=== PATIENT | male | born 1980 | race Caucasian/White ===

== ENCOUNTER 2025-10-02 19:09 | Emergency (ER) | payer OTHER, SELFPAY ==
[2025-10-02 19:10] VITALS: BMI 46.1
[2025-10-02 19:28] VITALS: BP 184/103; BP 194/116; PULSE 61; RESP 20; TEMP 36.9; O2SAT 98
--- NOTE | 2025-10-02 19:45 | XR_ITS ---
Examination: Foot, left, 3 views Technique: AP, oblique, lateral views foot, 3 views Date and time of exam: October 02, 2025, 1950 hours INDICATIONS: Laceration to the left foot today, foot pain. FINDINGS: No acute fracture No dislocation No foreign body Mild narrowing first metatarsophalangeal joint Large plantar bony calcaneal spur IMPRESSION: No opaque foreign body
--- NOTE | 2025-10-02 19:45 | XR_ITS ---
EXAMINATION: Left ankle 3 views TECHNIQUE: AP lateral left ankle 2 views Date and time: October 02, 2025, 1955 hours INDICATIONS: Twisting injury to the ankle today, ankle pain. FINDINGS: Lateral malleolar medial malleolar soft tissue swelling No acute fracture Large plantar bony calcaneal spur IMPRESSION: No acute fracture
--- NOTE | 2025-10-02 19:49 | EDNOTE_ITS ---
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 Patient also endorses that he twisted his left ankle about a month ago and it feels a bit better and he is able to walk on it however still irritates a little bit. Denies any numbness, tingling, weakness, chest pain, shortness of breath dizziness, headache. Related Data Home Medications ?Medication ?Instructions ?Recorded ?Confirmed NO HOME MEDS ##0 06/18/08 ciprofloxacin HCl 500 mg tablet 500 mg PO BID ##0 01/17 Previous Rx's ?Medication ?Instructions ?Recorded cephalexin 500 mg capsule 500 mg PO QID 7 days #28 cap s 10/02/25 Allergies Allergy/AdvReac Type Severity Reaction Status Date / Time No Known Allergies Allergy Verified 05/23/21 15:10 ED Exam Narrative Physical exam: Constitutional: Vital Signs Reviewed. Well appearing. No acute distress. Not toxic appearing. Head: Normocephalic, atraumatic. Eyes: Conjunctiva clear. ENT: Mucous membranes moist. Neck: Trachea midline. Normal range of motion. No nuchal rigidity. Respiratory: Normal effort. No respiratory distress or accessory muscle use. Neuro: Alert and oriented. Speech normal. No focal gross motor or sensory deficits observed. Skin: Warm, dry, normal color. Psych: Pleasant. Normal affect. Cooperative. Left lower extremity: The interdigital webspace of the 4th and 5th digits there is a laceration which was explored to base without deep structure involvement or foreign body. Patient with hammertoes noted throughout his left foot. Full range of motion, strength 5 out of 5, sensation tact light touch for left foot, ankle, and toes. Positive tenderness to palpation to left lateral malleolus with mild edema. Dorsalis pedis pulse 2+ regular rate and rhythm for left leg cap refill remains less than 2 seconds for left fourth digits. Course Quality Measures none Orders Category Date Time Status Set Up Suture Tray STAT Care 10/02/25 19:45 Completed splint [Splint / Immobilizer] STAT Care 10/02/25 22:00 Completed XR ankle LT 2V Stat Exams 10/02/25 19:45 Completed XR foot comp LT min 3V Stat Exams 10/02/25 19:45 Completed HYDROcodone/APAP 10/325 [Sanders 10/325] Med 10/02/25 19:51 Discontinued 1 tab PO X1 ONE Lidocaine 1% 20 ml [Xylocaine 1% 20 ML] Med 10/02/25 19:45 Discontinued 10 ml INFL X1 ONE TET,DIP/PERT AC (Adult)-Tdap [Boostrix Adult (Tdap) Med 10/02/25 19:45 Discontinued Vacc] 0.5 ml IMI .ONCE ONE cephALEXin [Keflex] Med 10/02/25 22:30 Discontinued 500 mg PO X1 ONE Vital Signs Vital signs: Vital Signs Temperature 98.5 F 10/02/25 19:28 Pulse Rate 61 10/02/25 19:28 Respiratory Rate 20 10/02/25 19:28 Blood Pressure 194/116 H 10/02/25 19:28 Pulse Oximetry (%) 98 10/02/25 19:28 Oxygen Delivery Method Room Air 10/02/25 19:28 PROCEDURES: Laceration Laceration 1: Site: lower extremity Side (If applicable): left (Interdigital space between 4th and 5th digits) Size (cm): 3 Description: linear Depth: simple, single layer Local Anesthetic: lidocaine 1% Amount of anesthesia used (mL): 4 Pre-repair: wound explored, irrigated extensively and deep structures intact Skin layer closed with: nylon Suture size (cm): 4-0 Number of sutures: 3 Technique: simple, interrupted Extremity Injury, Lower MDM Narrative MDM Narrative:: Concern for laceration and subacute ankle sprain additionally cannot exclude acute foot sprain Wound explored to base without tendon injury, FB tdap update prn, wound thoroughly irrigated, wound well approximated Left 4th and 5th toes and ankle remains DNVI with soft compartments X-ray without gross fracture or dislocation or foreign body Advised wound care edu, inevitable scar formation, prophylactic antibiotics, need to return without fail for suture removal, RICE therapy, CAM Walker boot, judit tape for 4th and 5th digits, follow-up with PMD in 2 days, return to the ER in 8 to 10 days for suture removal. Although this patient's blood pressure was out of the normal range on evaluation today, the patient does not have clinical evidence of acute end-organ injury. The patient has been counseled on the risks of poorly or uncontrolled blood pres sure and advised of the importance of close follow-up within the next 3-4 days to confirm that this blood pressure elevation is the result of a chronic hypertensive condition and to have it treated if so. The patient has also been counseled to return immediately if any further symptoms develop. Patient data External records reviewed:: [facility] previous records Clinical information provided by:: patient Social determinants that could affect healthcare access:: none Patient has the following chronic illnesses:: As noted How is presenting disease/condition affected by chronic disease/condition?: no chronic disease Evaluation data The following diagnostics were reviewed and interpreted by me:: other (specify) Lab and/or radiology exams considered but not ordered:: Additional Labs and radiology considered, but not ordered as they were not clinically indicated at this time. Interpretation Summary: None Medications / Prescriptions Medications or Prescriptions considered but not ordered:: I considered prescription management (both outpatient prescriptions AND drug treatment in the ER) and decided that this was necessary and was prescribed as charted. Medication administrations:: Medication Administration History Discontinued Medications Hydrocodone Bitart/Acetaminophen (Hydrocodone/Apap 10/325 Tab) 1 tab PO X1 ONE Stop: 10/02/25 19:52 Last Admin: 10/02/25 20:07 Dose: 1 tab Documented By: Cephalexin HCl (Cephalexin 250 Mg Capsule) 500 mg PO X1 ONE Stop: 10/02/25 22:31 Last Admin: 10/02/25 23:04 Dose: 500 mg Documented By: SF Diphtheria/Tetanus/Acell Pertussis (Diphth,Pertuss(Acell),Tet Vac 0.5 Ml Syr- Adult) 0.5 ml IMi .ONCE ONE Stop: 10/02/25 19:46 Last Admin: 10/02/25 20:09 Dose: 0.5 ml Documented By: Lidocaine HCl (Lidocaine Hcl 1% 20 Ml Vial) 10 ml INFL X1 ONE Stop: 10/02/25 19:46 Last Admin: 10/02/25 20:11 Dose: 10 ml Documented By: As noted Consultations Consultation(s) initiated? (list below): No Diagnosis Most likely diagnosis given after review of the tests above:: Laceration to 4th and 5th digits as well as subacute ankle sprain Admission Indicated Admission indicated?: not indicated Admission Request Was there a request for admission?: No Disposition Plan Disposition Plan: Discharge Discharge Attestation Discharge Attestation: The patient and all family members were given an opportunity to ask questions and understood the discharge instructions. Discharge instructions specifically effects, indications for sooner follow up or return to the emergency department, and the expected course of current diagnosis. Patient condition: Stable Discharge Plan Plan Patient Disposition: HOME (Self Care) Patient condition on transfer: Stable Prescriptions/Referrals Prescriptions/Med Rec: New cephalexin 500 mg capsule 500 mg PO QID 7 Days Qty: 28 0RF No Action NO HOME MEDS Qty: 0 ciprofloxacin HCl 500 MG tablet 500 mg PO BID Qty: 0 Referrals: No Primary/Family,Physician [Primary Care Provider] - In 1 week Problem List Clinical Impression: Ankle sprain and strain, Laceration of foot Patient/Caregiver Discharge Instructions Education Materials: ED High Blood Pressure ..., ED Laceration, Foot: All Closures, ED Toe Sprain, ED Ankle Sprain (Adult) Additional Instructions: Follow up with your primary medical doctor within 48 hours. Return to the Emergency Room immediately for any new, worsening, continuing symptoms or any concerns at all. Return to the Emergency Room within 48 hours if you are unable to follow up with your primary medical doctor within 48 hours. Return to the ER in 8 to 10 days for suture removal. Print Language: Latvian Stand Alone Forms: Olga Award Info., Patient Portal Info Letter YAMILETH/SARAH BETH Supervising Physician YAMILETH/SARAH BETH Supervising Physician: Dr. Wong
[2025-10-02] MEDS: DIPHTH,PERTUSS(ACELL),TET VAC 0.5 ML SYR- ADULT IMi (20:09)
[2025-10-02] MEDS: LIDOCAINE HCL 1% 20 ML VIAL 10 ML INFL (20:11)
[2025-10-02 22:40] VITALS: BP 153/90; PULSE 61; RESP 18; TEMP 36.8; O2SAT 95
== END 2025-10-02 23:31 | disposition home or self-care (01) ==
PROVIDERS: Emergency Provider Family Medicine
DX: S91.312A Laceration without foreign body, left foot, initial encounter (principal); S93.402A Sprain of unspecified ligament of left ankle, initial encounter; S96.912A Strain of unspecified muscle and tendon at ankle and foot level, left foot, initial encounter; X50.1XXA Overexertion from prolonged static or awkward postures, initial encounter; Z23 Encounter for immunization
CPT/HCPCS: 12002; 73600; 73630; 90471; 90715; 99283; J3490; A9270

== ENCOUNTER → 2025-10-09 | Outpatient (CLI) | payer BC, SELFPAY ==
[2025-10-09 07:47] LABS: Collection Type, Urine Clean Catch
[2025-10-09 08:34] LABS: Basophils # (Auto) 0.1 Thou/mm3 (0.0-0.2); Basophils % (Auto) 1 % (0-2.5); Eosinophils # (Auto) 0.2 Thou/mm3 (0.0-0.5); Eosinophils % (Auto) 3 % (0-10); Hematocrit 46.7 % (41.0-53.0); Hemoglobin 15.8 g/dL (13.5-16.0); Immature Granulocytes Auto 0.02 Thou/mm3 (0.00-0.00); Lymphocytes # (Auto) 1.9 Thou/mm3 (1.0-4.8); Lymphocytes % (Auto) 28 % (10-50); Mean Corpuscular HGB Conc 33.8 g/dl (31.0-37.0); Mean Corpuscular Hemoglobin 30.3 pg (25.0-35.0); Mean Corpuscular Volume 90 fL (80-100); Monocytes # (Auto) 0.5 Thou/mm3 (0.0-0.8); Monocytes % (Auto) 8 % (0-12); Neutrophils # (Auto) 4.1 Thou/mm3 (1.8-7.7); Neutrophils % (Auto) 60 % (37-80); Nucleated Red Blood Cell # 0.00 Thou/mm3 (0.00-0.00); Nucleated Red Blood Cell % 0 /100 WBC (0); Platelet Count 240 Thou/mm3 (140-440); RDW Standard Deviation 44.6 fL (35.1-43.9); Red Blood Count 5.22 Miln/mm3 (4.50-5.90); White Blood Count 6.8 Thou/mm3 (3.8-10.6)
[2025-10-09 08:36] LABS: Bilirubin,Urine Negative (Negative); Blood,Urine Negative (Negative); Clarity,Urine Clear (Clear/Hazy); Color,Urine Lt-Yellow (Lt Yel-Yel); Culture Indicated,Urine Not Indicated; Glucose, Urine Negative (Negative); Ketones,Urine Negative (Negative); Leukocyte Esterase,Urine Negative (Negative); Nitrite,Urine Negative (Negative); PH,Urine 7.0 (5.0-7.0); Protein,Urine Negative (Neg - Trace); RBC,Urine 1 /hpf (0-3); Specific Gravity,Urine 1.011 (1.001-1.035); Squamous Epithelial Cell,Urine < 1 /hpf (0-5); Urobilinogen,Urine Negative mg/dL (0.0-1.0); WBC,Urine 1 /hpf (0-5)
[2025-10-09 08:38] LABS: Glucose Estimated Average 105 mg/dL (80-131); Hemoglobin A1C 5.3 % Hgb (4.8-6.0)
[2025-10-09 08:45] LABS: Prostate Specific Antigen 0.65 ng/mL (0-4.00)
[2025-10-09 08:47] LABS: Alanine Aminotransferase 40 U/L (10-49); Albumin, Serum 4.4 gm/dL (3.5-5.0); Albumin/Globulin Ratio 2.1 (1.2-2.2); Alkaline Phosphatase 103 U/L (46-116); Anion Gap 10 (7-16); Aspartate Amino Transferase 35 U/L (0-34); BUN/Creatinine Ratio 11 Ratio (12-20); Bilirubin,Total 0.5 mg/dL (0.3-1.2); Blood Urea Nitrogen 11 mg/dL (9-23); Calcium 9.0 mg/dL (8.3-10.6); Calcium (Corrected) 9.0 mg/dL (8.5-10.1); Carbon Dioxide 27.8 mMol/L (20.0-31.0); Cardiac Risk Estimate 3.4 RATIO (4.0-6.7); Chloride 104 mMol/L (98-107); Cholesterol 133 mg/dL (132-200); Creatinine (Component) 1.0 mg/dL (0.6-1.3); Globulin 2.1 gm/dL (2.3-3.5); Glucose 96 mg/dL (74-106); HDL Cholesterol 39 mg/dL (40-60); LDL Cholesterol,Calculated 74 mg/dL (0-130); Osmolality,Calculated 282 (275-295); Potassium 4.2 mMol/L (3.4-5.1); Sodium 142 mMol/L (136-145); Thyroid Stimulating Hormone 2.74 uIU/mL (0.55-4.78); Total Protein 6.5 gm/dL (5.7-8.2); Triglycerides 98 mg/dL (30-150); eGFR > 60 See Note
== END | disposition home or self-care (01) ==
PROVIDERS: PCP Family Medicine; Referring Provider Nurse Practitioner Family; Visit Provider Nurse Practitioner Family
DX: I10 Essential (primary) hypertension (principal)
CPT/HCPCS: 36415; 80053; 80061; 81001; 83036; 84153; 84443; 85025